=== PATIENT | male | born 2005 | race Caucasian/White ===

== ENCOUNTER 2025-03-18 07:41 | Day surgery (SDC) | payer BC ==
[~2025-03-18] VITALS: Ht 182.9 cm; Wt 89.8 kg
[~2025-03-18 07:41] MED LIST: IBUP100S; Lidocaine 1%-Epineph 1:100000 20 ML MDV ONE; Ropivacaine 0.2% HCl/Pf 2 MG/ML 20ML Vial ONE
[2025-03-18] MEDS ORDERED: CeFAZolin Sodium 2,000 MG VIAL ONE (07:51)
[2025-03-18] MEDS ORDERED: FentaNYL Citrate 50 MCG/ML 2 ML Injection ONE ×2 (08:35→10:50)
[2025-03-18] MEDS ORDERED: Rocuronium Bromide 10 MG/ML 5ML Injection IV ONE ×2 (08:38→09:44)
[2025-03-18] MEDS ORDERED: Metoclopramide HCl 5MG / ML 2ML Vial ONE ×2 (08:38→09:53)
[2025-03-18] MEDS ORDERED: Ondansetron HCl 2 MG / ML 2ML Vial ONE ×2 (08:38→09:53)
[2025-03-18] MEDS ORDERED: Sugammadex Sodium 200 MG/2ML SDV (100 MG/ML) ONE (09:55)
[2025-03-18] MEDS ORDERED: Ketorolac Tromethamine 30mg Vial ONE (11:42)
[2025-03-18 13:28] VITALS: BP 130/92
--- NOTE | 2025-03-18 13:29 | NUR ---
03/18/25 1329 [address] 1315 D/CD HOME IN STABLE CONDITION PAIN AT AN ACCEPTABLE LEVEL PAIN MEDICATION EFFECTIVE 3-07/08, USING COLD PACK AND SLING. PT MET ALL DISCHARGE CRITERIA D/CD HOME WITH SPOUSE.
== END 2025-03-18 13:17 | disposition home or self-care (01) ==
LOC: ORSCSDS 07:41
PROVIDERS: Orthopaedic Surgery
PROC: 0RBN4ZZ Excision of Right Wrist Joint, Percutaneous Endoscopic Approach (ICD-10-PCS; principal; 2025-03-18 09:00)
DX: M67.431 Ganglion, right wrist (principal); M25.831 Other specified joint disorders, right wrist
CPT/HCPCS: A9270; J0166; J0690; J1885; J2003; J2405; J2704; J2765; J2795; J3010; J7120